=== PATIENT | female | born 1965 | race Caucasian/White ===

== ENCOUNTER → 2019-01-25 | Day surgery (SDC) | payer OTHER ==
[2019-01-22 16:06] LABS: BASOPHILS % 0.7 % (0.0-1.0); EOSINOPHILS # (AUTO) 0.2 (0.0-0.4); EOSINOPHILS % 4.3 % (0.0-6.0); HEMATOCRIT 38.6 % (34.2-44.1); HEMOGLOBIN 11.9 g/dL (12.0-16.0); LYMPHOCYTES # (AUTO) 0.3 (1.0-3.2); LYMPHOCYTES % 4.7 % (18.0-39.1); MEAN CORPUSCULAR HEMOGLOBIN 27.6 pg (28-32); MEAN CORPUSCULAR HGB CONC 30.8 g/dL (31-35); MEAN CORPUSCULAR VOLUME 89.6 fL (81-99); MONOCYTES # (AUTO) 0.6 (0.2-0.8); MONOCYTES % 11.2 % (4.4-11.3); NEUTROPHILS # (AUTO) 4.3 (2.1-6.9); PLATELET COUNT 310 x10e3/uL (140-360); RED BLOOD COUNT 4.31 x10e6/uL (3.6-5.1); RED CELL DISTRIBUTION WIDTH 13.6 % (11.7-14.4)
[~2019-01-25] MED LIST: BACLOFEN10 MG PO; CBD OIL PO; CEFTRIAXONE SOD 1 GM/NS 50 ML 50 ML IV ONE; DEXAMETHASONE SOD PHOS INJ 4 MG/ML VIAL ONE; FENTANYL CITRATE/PF 100MCG/2 ML INJ ONE; GILENYA0.5 MG PO; IOPAMIDOL 610MG/1ML 300 MG/ML VIAL IV ONE; LIDOCAINE HCL 2% LOCAL INJ 5 ML SDV VIAL INJ ONE; LYRICA75 MG PO; MIDAZOLAM HCL 2 MG/2 ML VIAL ONE; MULTI-VITAMIN1 EACH PO; NEXIUM40 MG PO; ONDANSETRON HCL INJ 2MG/ML 2ML 2 MG/ML VIAL ONE; PROPOFOL IV EMULSION 10 MG/ML 20 ML VIAL ONE; SEVOFLURANE INHAL SOLN 250 ML PEN BTL ONE; VENLAFAXINE H37.5 M2 PO; VITAMIN D35000 UNIT PO; estradiol PO; miralax
--- OUTSIDE RECORDS SUMMARY | 2019-01-25 06:46 | XMS REPORT | Clinical Summary ---
Author Author [facility] Address Unknown Phone Unavailable Care Team Providers Care Flavor Extractor Name Role Phone PCP Unavailable Allergies Comments Active Allergy Reactions Severity Noted Date Shellfish Containing 02/22/2013 Products Medications End Date Status Medication Sig Dispensed Refills Start Date Active pregabalin (LYRICA) 75 MG Take 75 mg by 0 capsule mouth 3 (three) times daily. Active cholecalciferol, vitamin Take 4,000 0 D3, 4,000 unit Tab Units by mouth daily. 2,000 units in am, 2,000 in pm Active Problems Not on file Encounters Care Team Description Date Type Specialty Chaitanya Mercedes Jr., MD Multiple sclerosis ([facility]) 06/05/2018 Outside Orders Central Scheduling after 01/24/2018 Social History Date Tobacco Use Types Packs/Day Years Used Current Every Day Smoker 0.5 23 Alcohol Use Drinks/Week oz/Week Comments No Sex Assigned at Date Recorded Not on file Industry Job Start Date Occupation Not on file Not on file Not on file Travel End Travel History Travel Start No recent travel history available. Last Filed Vital Signs Not on file Plan of Treatment Not on file Results Not on fileafter 01/24/2018 Insurance Payer Benefit Subscriber ID Type Phone Address Plan / Group [employer]ET[employer] - [employer] CARE [employer]ET[employer] HMO xxxxxxxxxx HMO/POS POS QPOS
--- OUTSIDE RECORDS SUMMARY | 2019-01-25 06:46 | XMS REPORT | Continuity of Care Document ---
Author Author [facility] Organization [facility] Address Unknown Phone Unavailable Care Team Providers Care Flatcar Whacker Name Role Phone [facility] Unavailable Unavailable Problems Problem Status Onset Date Classification Date Reported Comments Source Z12.31 - ENCNTR SCREEN MAMMOGRAM FOR MA Active 01/08/2016 [employer] [place] V76.11 - SCREEN MAMMOGRA Active 11/14/2013 [employer] [place] Medications No Data Provided for This Section Allergies, Adverse Reactions, Alerts No Known Medication Allergies Immunizations No Data Provided for This Section Results No Data Provided for This Section Pathology Reports No Data Provided for This Section Diagnostic Reports Report Value Date Source Digital Mammo Screening Teresita [place] - DIGITAL MAMMO SCREENING TERESITA [place] BILATERAL DIGITAL SCREENING MAMMOGRAM WITH CAD: 01/30/2016 CLINICAL: Routine. Current study was evaluated with a Computer Aided Detection (CAD) system. Comparison is made to exams dated: 01/28/2015 mammogram, 01/28/2014 mammogram and 01/26/2013 mammogram - [facility]. There are scattered fibroglandular densities in both breasts. There is a new 8 mm oval asymmetry with a circumscribed margin in the right breast anterior depth superior region seen on the mediolateral oblique view only 5 cm from the nipple. No other significant masses, calcifications, or other findings are seen in either breast. IMPRESSION: INCOMPLETE: NEEDS ADDITIONAL IMAGING EVALUATION The new 8 mm oval asymmetry in the right breast is indeterminate. Additional views with possible ultrasound are recommended. Kellee lópez/penrad:01/30/2016 11:04:11 Horticultural Therapist: Tish Guadarrama [facility] This exam was dictated and interpreted by [id number] at [facility] Location. letter sent: Additional Imaging Mammogram BI-RADS: 0 Indeterminate 01/30/2016 [employer] [place] Bone Density [employer] MA - Bone Density [employer] MA BONE DENSITY EVALUATION: 01/30/2016 CLINICAL DATA: Post menopausal. RISK FACTORS: race. FINDINGS: Bone density evaluation was performed 01/30/2016 on the AP L1-L4 region of spine using a Hologic unit. The BMD average for the exam is 0.993 g/cm2. The T-score is -0.50 and the Z-score is 0.40. This matches the World Health Organization's criteria for normal bone density and places the patient within normal limits of fracture risk. An additional bone density evaluation was performed 01/30/2016 on the right femur neck using a Hologic unit. The BMD average for the exam is 0.777 g/cm2. The T-score is -0.60 and the Z-score is 0.30. This matches the World Health Organization's criteria for normal bone density and places the patient within normal limits of fracture risk. An additional bone density evaluation was performed 01/30/2016 on the right total femur area using a Hologic unit. The BMD average for the exam is 0.911 g/cm2. The T-score is -0.30 and the Z-score is 0.30. This matches the World Health Organization's criteria for normal bone density and places the patient within normal limits of fracture risk. An additional bone density evaluation was performed 01/30/2016 on the left femur neck using a Hologic unit. The BMD average for the exam is 0.696 g/cm2. The T- score is -1.40 and the Z-score is -0.50. This matches the World Health Organization's criteria for osteopenia and places the patient at a medium risk for fracture. An additional bone density evaluation was performed 01/30/2016 on the left total femur area using a Hologic unit. The BMD average for the exam is 0.932 g/cm2. The T-score is -0.10 and the Z-score is 0.50. This matches the World Health Organization's criteria for normal bone density and places the patient within normal limits of fracture risk. IMPRESSION: OSTEOPENIA Patient is at medium risk for fracture. This exam was dictated and interpreted by [id number] for ANICETO Freire 15. David Crow M.D., cm/amaya:01/30/2016 15:42:48 Horticultural Therapist: Cisco Mabry 01/30/2016 ARMANDO Melchor Digital Mammo Screening Teresita MA - DIGITAL MAMMO SCREENING TERESITA MA BILATERAL DIGITAL SCREENING MAMMOGRAM WITH CAD: 01/28/2014 CLINICAL: Screening Mammogram. Current study was evaluated with a Computer Aided Detection (CAD) system. Comparison is made to exam dated: 01/26/2013 mammogram - [facility]. There are scattered fibroglandular densities in both breasts. Bilateral saline subpectoral breast implants are noted and imaged with routine and implant displaced views. There is a benign intramammary node in both breasts. There also is a benign density in the left breast. Bilateral breast implants are stable and intact. No significant masses, calcifications, or other findings are seen in either breast. There has been no significant interval change. IMPRESSION: BENIGN There is no mammographic evidence of malignancy. A screening mammogram in one year is recommended. Troy gresham/amaya:01/28/2014 11:38:51 Horticultural Therapist: Yessenia PALOMINO(R)(M), [facility] This exam was dictated and interpreted by [id number] for [facility]. letter sent: Normal exam Mammogram BI-RADS: 2 Benign 01/28/2014 HERB Melchor Consultation Notes No Data Provided for This Section Discharge Summaries No Data Provided for This Section History and Physicals No Data Provided for This Section Vital Signs No Data Provided for This Section Encounters Location Location Details Encounter Type Encounter Number Reason For Visit Attending Provider ADM Date DC Date Status Source [facility] [place] [facility] [id number] Non Physician 01/28/2014 01/29/2014 [facility] Melchor Procedures No Data Provided for This Section Assessment and Plan No Data Provided for This Section Plan of Care No Data Provided for This Section Social History No Data Provided for This Section Family History No Data Provided for This Section Advance Directives No Data Provided for This Section Functional Status No Data Provided for This Section
--- OUTSIDE RECORDS SUMMARY | 2019-01-25 06:47 | XMS REPORT | Summary of Care ---
Author Organization Unknown Address Unknown Phone Unavailable Encounter HQ Encntr_alias(BENEDICTO) [id number] Date(s): 01/28/14 - 01/28/14 [facility] Outpatient Imaging [address] Discharge Disposition: Home Physician Attending: Physician, Non Associated MD Physician_Referring: Ronit Eduardo MD Reason for Visit V76.11 - SCREEN MAMMOGRA Problem List No data available for this section Allergies, Adverse Reactions, Alerts No data available for this section Medications No data available for this section Medications Administered During Your Visit No data available for this section Immunizations No data available for this section
[2019-01-25 08:03] LABS: ANION GAP 12.2 mmol/L (8-16); BLOOD UREA NITROGEN 16 mg/dL (7-26); BUN/CREATININE RATIO 21 (6-25); CARBON DIOXIDE 29 mmol/L (22-29); CHLORIDE 103 mmol/L (98-107); CREATININE, SERUM 0.78 mg/dL (0.57-1.11); EST GLOMERULAR FILTRATION RATE > 60 ML/MIN (60-); GLUCOSE 106 mg/dL (74-118); POTASSIUM 4.2 mmol/L (3.5-5.1); SODIUM 140 mmol/L (136-145)
[2019-01-25 09:45] VITALS: BP 135/70
--- NOTE | 2019-01-25 15:03 | Operative Report ---
DATE OF PROCEDURE: 01/25/2019 SURGEON: Dallas Cross MD PREOPERATIVE DIAGNOSES: 1. Hematuria. 2. Left flank pain. POSTOPERATIVE DIAGNOSES: 1. Hematuria. 2. Left flank pain. OPERATIVE PROCEDURES: 1. Cystoscopy. 2. Bilateral retrograde pyelogram. ANESTHESIA: General anesthesia. ESTIMATED BLOOD LOSS: Minimal. INDICATIONS: Ms. Nila Jackson is a 53-year-old woman with a history of advanced and recent hematuria and intermittent left flank pain. She now presents for potential management of this problem. PROCEDURE IN DETAIL: The patient was brought into the operating room, placed in supine position. After the initiation of general anesthesia, was placed in dorsal lithotomy position and prepped and draped in the usual sterile fashion. Cystourethroscopy was performed using 21-Burmese cystoscope. The anterior and posterior urethra were noted to be normal. The bladder was entered without difficulty. Upon entrance into the bladder, there was squamous metaplasia seen in the trigone. The ureteral orifices were in normal anatomical position and produced clear efflux. There were no mucosal lesions identified. Using a 5-Burmese open Cone catheter, bilateral retrograde pyelograms were performed. These revealed normal ureters without obstruction or filling defects, and normal renal pelvis, and calices without dilation or masses. Both systems were noted to drain fairly normally. However, there was mild delay time at the drainage on the left side. This may be the cause of the patient's mild intermittent left flank pain. Both systems were seen to drain completely within 5 minutes. The scope and sheath were removed and the catheter drained. The patient was returned to supine position and anesthesia was reversed. She was transferred to a bed and taken to the postanesthesia care unit in good condition. Of note, the needle and instrument count were correct at the conclusion of the case. Dallas Cross MD HLW/MODL /[id number]
== END | disposition home or self-care (01) ==
LOC: OR 06:43
PROVIDERS: ATTEND Urology
DX: R31.9 Hematuria, unspecified (principal); N32.89 Other specified disorders of bladder; R10.9 Unspecified abdominal pain; G35 Multiple sclerosis; M19.90 Unspecified osteoarthritis, unspecified site; R06.83 Snoring; K21.9 Gastro-esophageal reflux disease without esophagitis; Z01.810 Encounter for preprocedural cardiovascular examination; Z01.812 Encounter for preprocedural laboratory examination; Z68.36 Body mass index [BMI] 36.0-36.9, adult; Z87.891 Personal history of nicotine dependence
CPT/HCPCS: 36415 ×2; 52005; 74420; 80048; 85025; 93005; J0696; J1100; J2001; J2250; J2405; J2704; J3010; Q9967